=== PATIENT | female | born 1930 | race Caucasian/White ===

== ENCOUNTER → 2017-02-08 | Outpatient (CLI) | payer MEDICARE, OTHER ==
[~2017-02-08] MED LIST: AMOXICILLIN500 MG PO; ASPI-COR81 M1; CLARITIN10 MG PO; GABAPENTIN300 MG PO; HYZAAR 50/12.5M1 TAB PO; KEFLEX500 MG PO; LOSARTAN POTASS25 M1 PO; MEDROL DOSEPAK4 MG PO; PROTONIX40 MG PO; THYROX PO; TOBREX OPHTH S2.5 ML OPH; TYLENOL W/CODEI1 TA2 PO; ULTRAM50 MG PO
== END ==
LOC: MAMMO 01-24 17:40
DX: Z12.31 Encounter for screening mammogram for malignant neoplasm of breast (principal)

== ENCOUNTER → 2017-08-08 | Outpatient (CLI) | payer MEDICARE, OTHER | END | disposition home or self-care (01) | LOC: CT 09:36 | DX: I25.10 Atherosclerotic heart disease of native coronary artery without angina pectoris (principal); J98.11 Atelectasis; G95.29 Other cord compression; Z90.49 Acquired absence of other specified parts of digestive tract; Z90.710 Acquired absence of both cervix and uterus ==

== ENCOUNTER → 2017-08-15 | Outpatient (CLI) | payer MEDICARE, OTHER ==
--- NOTE | ~2017-08-15 | PF ---
[place], [place] PULMONARY FUNCTION TEST [id number] UNIT #: [id number] ROOM: DOCTOR: MOISES MCKEON MD,GIOVANNI BIRTHDATE: [birth year] DOS: 08/15/2017 HISTORY: The patient is an 87-year-old female, height of 65 inches, weight 170 pounds, BMI 28.3. The testing was done for assessment of symptoms of shortness of breath with productive cough. There was no past tobacco use. SPIROMETRY: The FVC was recorded as 2.62 liters, 105% predicted value, FEV1 of 1.98 liters, 105% predicted value. The ratio of FEV1/FVC, 76%. 12% partial improvement occurred postbronchodilator test. Flow volume loop was suggestive of mild obstructive airway pattern. LUNG VOLUME: Thoracic gas volume recorded 101%, residual volume of 104%, total lung capacity 100%. The patient's airway resistance and passive conductance normal. The patient's lung diffusion noted low normal. FINAL IMPRESSION: Possibility of mild reversible obstructive lung disease as bronchial asthma cannot be completely excluded. Current pulmonary function test. Clinical correlation would be advised. GIOVANNI DE LEON MD CM:PFREPORT:PULMONARY FUNCTION TEST 1215 1724 GIOVANNI MCKEON MD
== END | disposition home or self-care (01) ==
LOC: CP 06:53
DX: R05 Cough (principal)

== ENCOUNTER → 2017-08-16 | Outpatient (CLI) | payer MEDICARE, OTHER | END | disposition home or self-care (01) | LOC: MRI 01:12 | DX: S22.059D Unspecified fracture of T5-T6 vertebra, subsequent encounter for fracture with routine healing (principal); X58.XXXD Exposure to other specified factors, subsequent encounter ==

== ENCOUNTER → 2018-02-05 | Outpatient (CLI) | payer MEDICARE, OTHER | END | disposition home or self-care (01) | LOC: RAD 10:44 | DX: Z13.820 Encounter for screening for osteoporosis (principal); Z78.0 Asymptomatic menopausal state ==

== ENCOUNTER → 2018-02-08 | Outpatient (CLI) | payer MEDICARE, OTHER | END | disposition home or self-care (01) | LOC: MAMMO 01:37 | DX: Z12.31 Encounter for screening mammogram for malignant neoplasm of breast (principal); R92.8 Other abnormal and inconclusive findings on diagnostic imaging of breast ==

== ENCOUNTER → 2018-05-09 | Outpatient (CLI) | payer MEDICARE, OTHER ==
[~2018-05-09] MED LIST changes: +FLOVENT HFA12 G1 PO; -GABAPENTIN300 MG PO; +LASIX40 MG PO; +MOBIC7.5 MG PO; +NEURONTIN300 MG PO; +VITAMIN B121000 MC1 PO; +VITAMIN D35000 UNIT PO
[2018-05-09 08:55] VITALS: BP 129/71
== END | disposition home or self-care (01) ==
LOC: INJECTION 08:46
DX: M81.0 Age-related osteoporosis without current pathological fracture (principal); J44.9 Chronic obstructive pulmonary disease, unspecified; I10 Essential (primary) hypertension; K21.9 Gastro-esophageal reflux disease without esophagitis; Z86.718 Personal history of other venous thrombosis and embolism

== ENCOUNTER → 2018-12-20 | Outpatient (CLI) | payer MEDICARE, OTHER ==
[2018-12-20 07:52] LABS: BASO % 0.5 % (0.0-1.0); EOS # 0.3 10*3/uL (0.0-0.4); EOS % 4.9 % (1.0-4.0); HEMATOCRIT 39.2 % (37.0-47.0); HEMOGLOBIN 12.9 g/dl (12.0-16.0); LYMPH # 1.4 10*3/uL (1.3-4.4); LYMPH % 25.5 % (27.0-41.0); MEAN CELL VOLUME 95.1 fl (81.0-99.0); MEAN CORPUSCULAR HGB 31.3 pg (27.0-31.0); MEAN CORPUSCULAR HGB CONC 32.9 g/dl (33.0-37.0); MEAN PLATELET VOLUME 10.7 fl (9.6-12.3); MONO # 0.5 10*3/uL (0.1-1.0); MONO % 9.6 % (3.0-9.0); NEUT # 3.3 10*3/uL (2.3-7.9); NEUT % 59.3 % (47.0-73.0); PLATELET COUNT AUTOMATED 205 10*3/uL (130-400); RED BLOOD COUNT 4.12 10*6/uL (4.10-5.10); RED CELL DISTRI WIDTH 12.9 % (0-14.5); WHITE BLOOD COUNT 5.5 10*3/uL (4.8-10.8)
[2018-12-20 08:21] LABS: ALBUMIN 3.8 gm/dl (3.1-4.5); CREATININE 1.09 mg/dL (0.55-1.02); POTASSIUM 3.6 mmol/L (3.5-5.1); TOTAL PROTEIN 6.9 gm/dL (6.4-8.2)
[2018-12-20 08:28] LABS: FREE T4 1.03 ng/dl (0.76-1.46); THYROID STIM HORMONE (HS) 1.55 uIU/ml (0.358-4.75)
[2018-12-20 08:40] LABS: VITAMIN D, 25-HYDROXY 27.8 ng/mL (30-100)
== END | disposition home or self-care (01) ==
LOC: LAB 07:28
PROVIDERS: Internal Medicine
DX: E78.2 Mixed hyperlipidemia (principal); I10 Essential (primary) hypertension; E03.9 Hypothyroidism, unspecified; E55.9 Vitamin D deficiency, unspecified; D52.9 Folate deficiency anemia, unspecified; D51.9 Vitamin B12 deficiency anemia, unspecified

== ENCOUNTER → 2018-12-28 | Outpatient (CLI) | payer MEDICARE, OTHER | END | disposition home or self-care (01) | LOC: MRI 12-17 08:00 | DX: M47.816 Spondylosis without myelopathy or radiculopathy, lumbar region (principal) ==

== ENCOUNTER 2020-07-07 15:09 | Emergency (ER) | payer MEDICARE, OTHER ==
[~2020-07-07] VITALS: Ht 167.6 cm; Wt 73.5 kg
[2020-07-07 15:16] VITALS: BP 106/67
[2020-07-07] MEDS ORDERED: NAPROXEN250 MG PO (17:28)
[2020-07-07] MEDS ORDERED: TYLENOL325 M1 PO (17:28)
== END 2020-07-07 17:32 | disposition home or self-care (01) ==
LOC: ED 15:09
DX: S22.31XA Fracture of one rib, right side, initial encounter for closed fracture (principal); I10 Essential (primary) hypertension; K21.9 Gastro-esophageal reflux disease without esophagitis; J44.9 Chronic obstructive pulmonary disease, unspecified; Z79.899 Other long term (current) drug therapy; Z79.82 Long term (current) use of aspirin; X58.XXXA Exposure to other specified factors, initial encounter; Y93.89 Activity, other specified; Y92.89 Other specified places as the place of occurrence of the external cause; Y99.8 Other external cause status

== ENCOUNTER 2020-11-03 10:26 | Emergency (ER) | payer MEDICARE, OTHER ==
[~2020-11-03 10:26] MED LIST changes: +NAPROXEN250 MG PO; +TYLENOL325 M1 PO
[2020-11-03 10:33] VITALS: BP 143/83
[2020-11-03 11:21] LABS: BASO % 0.3 % (0.0-1.0); EOS # 0.2 10*3/uL (0.0-0.4); EOS % 1.9 % (1.0-4.0); HEMATOCRIT 42.3 % (37.0-47.0); LYMPH # 0.9 10*3/uL (1.3-4.4); LYMPH % 11.5 % (27.0-41.0); MEAN CELL VOLUME 95.1 fl (81.0-99.0); MEAN CORPUSCULAR HGB 30.6 pg (27.0-31.0); MEAN CORPUSCULAR HGB CONC 32.2 g/dl (33.0-37.0); MEAN PLATELET VOLUME 10.2 fl (9.6-12.3); MONO # 0.6 10*3/uL (0.1-1.0); MONO % 6.9 % (3.0-9.0); NEUT # 6.3 10*3/uL (2.3-7.9); NEUT % 79.3 % (47.0-73.0); PLATELET COUNT AUTOMATED 218 10*3/uL (130-400); RED BLOOD COUNT 4.45 10*6/uL (4.10-5.10); RED CELL DISTRI WIDTH 12.4 % (0-14.5)
[2020-11-03 11:23] LABS: BILIRUBIN Negative (Negative); BLOOD Negative (Negative); CLARITY Clear (Clear); COLOR Yellow (Yellow); GLUCOSE Negative (Negative); KETONE Negative (Negative); LEUKO ESTERASE Trace (Negative); NITRITE Negative (Negative); PH 6.5 (4.5-8.0); UROBILINOGEN 0.2 E.U./dl (0.0-1.0)
[2020-11-03 11:38] LABS: BACTERIA TRACE; MUCOUS 1+; WBC 0-2 wbc/hpf (0-5)
[2020-11-03 11:39] LABS: ALBUMIN 3.9 gm/dl (3.1-4.5); ALKALINE PHOSPHATASE 49 U/L (45-117); BUN 20 mg/dl (7-24); CHLORIDE 106 mmol/L (98-107); CREATININE 1.02 mg/dL (0.55-1.02); LIPASE 62 U/L (73-393); POTASSIUM 3.7 mmol/L (3.5-5.1); SGOT/AST 18 IU/L (3-35); SGPT/ALT 28 U/L (12-78); SODIUM 141 mmol/L (136-145); TOTAL PROTEIN 7.3 gm/dL (6.4-8.2)
[2020-11-03] MEDS ORDERED: ZOFRAN4 MG PO (12:43)
== END 2020-11-03 12:53 | disposition home or self-care (01) ==
LOC: ED 10:26
PROVIDERS: Emergency Medicine
DX: K52.9 Noninfective gastroenteritis and colitis, unspecified (principal); R11.2 Nausea with vomiting, unspecified; Z79.899 Other long term (current) drug therapy; Z79.82 Long term (current) use of aspirin; Z90.711 Acquired absence of uterus with remaining cervical stump; Z90.49 Acquired absence of other specified parts of digestive tract

== ENCOUNTER 2021-03-03 11:19 | Emergency (ER) | payer MEDICARE, OTHER ==
[~2021-03-03] VITALS: Ht 167.6 cm; Wt 72.6 kg
[~2021-03-03 11:19] MED LIST changes: +ZOFRAN4 MG PO
[2021-03-03 11:20] VITALS: BP 145/46
== END 2021-03-03 14:45 | disposition home or self-care (01) ==
LOC: ED 11:19
DX: S30.0XXA Contusion of lower back and pelvis, initial encounter (principal); M25.561 Pain in right knee; Z79.899 Other long term (current) drug therapy; W18.39XA Other fall on same level, initial encounter; Y93.89 Activity, other specified; Y92.89 Other specified places as the place of occurrence of the external cause; Y99.8 Other external cause status

== ENCOUNTER → 2021-03-10 | Outpatient (CLI) | payer MEDICARE, OTHER ==
[~2021-03-10] MED LIST changes: +HYDROCODONE-AC1 EAC1 PO
== END | disposition home or self-care (01) ==
LOC: RAD 10:43
PROVIDERS: ATTEND Internal Medicine
DX: M43.16 Spondylolisthesis, lumbar region (principal); M48.061 Spinal stenosis, lumbar region without neurogenic claudication; M47.817 Spondylosis without myelopathy or radiculopathy, lumbosacral region; M54.50 Low back pain, unspecified

== ENCOUNTER 2021-03-15 11:41 | Inpatient (IN) | payer MEDICARE, OTHER ==
[~2021-03-15] VITALS: Ht 167.6 cm; Wt 72.6 kg
[~2021-03-15 11:41] MED LIST changes: -HYDROCODONE-AC1 EAC1 PO
[2021-03-15 11:53] VITALS: BP 122/52
[2021-03-15] MEDS ORDERED: HYDROCODONE-AC1 EAC1 PO (11:53)
[2021-03-15 12:46] LABS: BASO % 0.7 % (0.0-1.0); EOS # 0.1 10*3/uL (0.0-0.4); LYMPH # 0.9 10*3/uL (1.3-4.4); LYMPH % 14.8 % (27.0-41.0); MEAN CELL VOLUME 93.8 fl (81.0-99.0); MEAN CORPUSCULAR HGB CONC 32.1 g/dl (33.0-37.0); MEAN PLATELET VOLUME 10.1 fl (9.6-12.3); MONO # 0.5 10*3/uL (0.1-1.0); MONO % 7.8 % (3.0-9.0); NEUT # 4.5 10*3/uL (2.3-7.9); NEUT % 74.4 % (47.0-73.0); PLATELET COUNT AUTOMATED 219 10*3/uL (130-400); RED BLOOD COUNT 4.16 10*6/uL (4.10-5.10); RED CELL DISTRI WIDTH 12.3 % (0-14.5)
[2021-03-15 12:59] LABS: BILIRUBIN Negative (Negative); BLOOD Negative (Negative); CLARITY Clear (Clear); COLOR Yellow (Yellow); GLUCOSE Negative (Negative); KETONE Negative (Negative); LEUKO ESTERASE Trace (Negative); NITRITE Negative (Negative); PH 6.5 (4.5-8.0); UROBILINOGEN 0.2 E.U./dl (0.0-1.0)
[2021-03-15 13:09] LABS: ALBUMIN 3.4 gm/dl (3.1-4.5); ALKALINE PHOSPHATASE 73 U/L (45-117); BUN 19 mg/dl (7-24); CHLORIDE 104 mmol/L (98-107); CREATININE 0.99 mg/dL (0.55-1.02); POTASSIUM 3.6 mmol/L (3.5-5.1); SGOT/AST 16 IU/L (3-35); SGPT/ALT 25 U/L (12-78); SODIUM 141 mmol/L (136-145); TOTAL PROTEIN 7.3 gm/dL (6.4-8.2)
[2021-03-15 14:07] LABS: BACTERIA TRACE; EPITHELIAL CELLS 0-2
[2021-03-15 14:30] VITALS: BP 133/87
[2021-03-15 14:45] VITALS: BP 128/56
[2021-03-15 16:00] VITALS: BP 146/74
[2021-03-16] VITALS: BP 131/58
[2021-03-16 08:00] VITALS: BP 173/69
[2021-03-16 12:00] VITALS: BP 127/62
[2021-03-17] VITALS: BP 145/61
[2021-03-17 08:00] VITALS: BP 158/68
[2021-03-17] MEDS ORDERED: METHOCARBAMOL750 M1 PO (08:16)
[2021-03-17] MEDS ORDERED: CELECOXIB200 MG PO (08:16)
[2021-03-17] MEDS ORDERED: HYDROCODONE-AC1 EAC1 PO (08:18)
== END 2021-03-17 10:07 | disposition home health service (06) | DRG 544 ==
LOC: ED 11:41 → EDHOLD 12:26 → 5E 12:26
PROVIDERS: Physician Assistant; ADMIT Internal Medicine; ATTEND Internal Medicine
DX: M48.56XA Collapsed vertebra, not elsewhere classified, lumbar region, initial encounter for fracture (principal); M54.50 Low back pain, unspecified; I10 Essential (primary) hypertension; E03.9 Hypothyroidism, unspecified; E78.2 Mixed hyperlipidemia; M19.90 Unspecified osteoarthritis, unspecified site; M48.061 Spinal stenosis, lumbar region without neurogenic claudication; G62.9 Polyneuropathy, unspecified; W19.XXXA Unspecified fall, initial encounter; Y93.89 Activity, other specified; Y92.89 Other specified places as the place of occurrence of the external cause; Y99.8 Other external cause status

== ENCOUNTER 2021-05-30 13:08 | Emergency (ER) | payer MEDICARE, OTHER ==
[~2021-05-30] VITALS: Wt 72.6 kg
[~2021-05-30 13:08] MED LIST changes: +CELECOXIB200 MG PO; +HYDROCODONE-AC1 EAC1 PO; +METHOCARBAMOL750 M1 PO
[2021-05-30 13:22] VITALS: BP 125/60
[2021-05-30 13:58] LABS: BASO % 0.4 % (0.0-1.0); EOS # 0.2 10*3/uL (0.0-0.4); EOS % 2.5 % (1.0-4.0); HEMATOCRIT 42.9 % (37.0-47.0); LYMPH # 1.4 10*3/uL (1.3-4.4); LYMPH % 20.9 % (27.0-41.0); MEAN CELL VOLUME 95.5 fl (81.0-99.0); MEAN CORPUSCULAR HGB 31.2 pg (27.0-31.0); MEAN CORPUSCULAR HGB CONC 32.6 g/dl (33.0-37.0); MEAN PLATELET VOLUME 10.1 fl (9.6-12.3); MONO # 0.5 10*3/uL (0.1-1.0); MONO % 6.7 % (3.0-9.0); NEUT # 4.7 10*3/uL (2.3-7.9); NEUT % 69.4 % (47.0-73.0); PLATELET COUNT AUTOMATED 234 10*3/uL (130-400); RED BLOOD COUNT 4.49 10*6/uL (4.10-5.10); WHITE BLOOD COUNT 6.8 10*3/uL (4.8-10.8)
[2021-05-30 14:11] LABS: CREATININE 1.2 mg/dL (0.55-1.02); POTASSIUM 3.7 mmol/L (3.5-5.1)
== END 2021-05-30 15:41 | disposition home or self-care (01) ==
LOC: ED 13:08
PROVIDERS: Student in an Organized Health Care Education/Training Program
DX: I95.1 Orthostatic hypotension (principal); Z79.899 Other long term (current) drug therapy; Z90.49 Acquired absence of other specified parts of digestive tract; Z98.890 Other specified postprocedural states

== ENCOUNTER → 2021-06-04 | Outpatient (CLI) | payer MEDICARE, OTHER | END | disposition home or self-care (01) | LOC: CT 08:41 | PROVIDERS: ATTEND Internal Medicine | DX: I67.82 Cerebral ischemia (principal) ==

== ENCOUNTER → 2021-06-15 | Outpatient (CLI) | payer MEDICARE, OTHER | END | disposition home or self-care (01) | LOC: US 09:12 | PROVIDERS: ATTEND Internal Medicine | DX: I65.23 Occlusion and stenosis of bilateral carotid arteries (principal) ==

== ENCOUNTER → 2021-10-11 | Outpatient (CLI) | payer MEDICARE, OTHER ==
[2021-10-11 11:40] LABS: CREATININE 0.86 mg/dL (0.55-1.02)
== END | disposition home or self-care (01) ==
LOC: LAB 10:59 → MRI 11:00
PROVIDERS: Radiology Diagnostic Radiology; ATTEND Internal Medicine
DX: I67.82 Cerebral ischemia (principal); G93.89 Other specified disorders of brain